=== PATIENT | female | born 1950 | race Caucasian/White ===

== ENCOUNTER 2016-06-13 10:47 | Observation (INO) | payer MEDICARE, MEDICAID ==
[2016-06-13] MEDS ORDERED: Aspirin Low Dose CHEW TAB* 81 MG PO ONE (11:14)
--- NOTE | 2016-06-13 11:37 | RAD ---
INDICATION: Chest pain COMPARISON: December 02, 2011 TECHNIQUE: An AP portable view obtained at 1120 hours is submitted. FINDINGS: Bones/Soft Tissues: There are no acute bony findings. Cardiomediastinal: The cardiomediastinal silhouette is normal. Lungs: There are no infiltrates. Pleura: There are no pleural effusions. Other: None IMPRESSION: NO ACTIVE DISEASE.
[2016-06-13 11:52] LABS: Hematocrit 40 % (35-47); Hemoglobin 13.3 g/dl (12.0-16.0); Mean Corpuscular HGB Conc 33 g/dl (31-36); Mean Corpuscular Hemoglobin 28 pg (27-31); Mean Corpuscular Volume 84 fL (80-97); Mean Platelet Volume 8 um3 (7.4-10.4); Red Blood Count 4.76 10^6/ul (4.0-5.4); Red Cell Distribution Width 13 % (10.5-15); White Blood Count 13.2 10^3/ul (3.5-10.8)
[2016-06-13 12:08] LABS: Albumin 3.5 g/dL (3.2-5.2); BUN/Creatinine Ratio 19.4 (8-20); EGFR Non-African American 88.6 (>60); Globulin 3.9 g/dL (2-4); Potassium 3.8 mmol/L (3.5-5.0); Total Bilirubin 0.3 mg/dL (0.2-1.0); Total Protein 7.4 g/dL (6.4-8.9)
[2016-06-13] MEDS ORDERED: Nitroglycerin TAB 0.4 MG* 0.4 MG TAB SL ONE (12:47)
[2016-06-13] MEDS ORDERED: hydrOXYzine HCL TAB* 25 MG PO PRN (14:57)
[2016-06-13] MEDS ORDERED: Dextrose 50% Syringe 50 ML* 25 GM/50 ML SYRINGE IV PUSH PRN (15:04)
[2016-06-13 15:46] LABS: HDL Cholesterol 44.4 mg/dL
[2016-06-13] MEDS ORDERED: Omeprazole CAP* 20 MG PO SCH (16:30)
[2016-06-13] MEDS ORDERED: Insulin LISPRO* 1 UNITS UNIT SUBCUT SCH (16:30)
[2016-06-13 17:18] VITALS: BP 115/67
--- NOTE | 2016-06-13 17:31 | HP ---
HOSPITAL MEDICINE HISTORY AND PHYSICAL: DATE OF ADMISSION: 06/13/16 PRIMARY CARE PHYSICIAN: Dr. Lopes. ATTENDING PHYSICIAN: Dr. Zachary Woo *(dictation provided by Jessy Quintero NP) CHIEF COMPLAINT: Chest pain. HISTORY OF PRESENT ILLNESS: Ms. Mistry is a 65-year-old female with a past medical history of diabetes, who presents today to the hospital with concern for chest pressure. Ms. Mistry states that she has had chest discomfort over the past 2 to 3 days. She reports that she will have chest pressure in the center of her chest associated with diaphoresis and lightheadedness after doing small housework in the home. She reports this started about 3 days ago and has continued since then. She states that the discomfort resolves with rest. She has had in the center of her chest and also today now radiating into the left shoulder. She was counseled by her friend to come to the hospital for evaluation. In the emergency room, Ms. Mistry had a troponin, which was 0.00 and an EKG which shows sinus rhythm with no evidence of ischemia. Her chest x-ray showed no acute process. She did continue to complain of pain in the ED, which resolved with 2 nitroglycerin. PAST MEDICAL HISTORY: 1. Diabetes. 2. GERD. 3. Depression. 4. History of total abdominal hysterectomy with oophorectomy. 5. Right shoulder surgery. 6. History of right foot osteomyelitis with amputation of the distal third toe. 7. Diverticulosis. MEDICATIONS: 1. Omeprazole 20 mg p.o. b.i.d. 2. Sitagliptin 100 mg p.o. daily. 3. Venlafaxine ER 300 mg p.o. q.a.m. 4. Hydroxyzine 25 mg p.o. four times a day p.r.n. ALLERGIES: To CIPROFLOXACIN, GLIPIZIDE, LACTOSE, LATEX, ASPIRIN, and LAUNDRY SOAPS. FAMILY HISTORY: The patient reports her mom in her 80s. Her dad is still alive. She has not know of any particular healthy histories with him. She has 1 child who is a male who is alive. She has 6 sisters and 4 brothers, all still alive and she is not aware of any acute or chronic health issues with them. SOCIAL HISTORY: No report of alcohol, tobacco, or drug use. The patient states that Jessy Olivier will be her healthcare proxy. REVIEW OF SYSTEMS: A 14-point review of systems was completed with Ms. Mistry and all those not mentioned above were negative. PHYSICAL EXAMINATION GENERAL: Ms. Mistry is sitting up in the bed. She is in no acute distress. She is calm and cooperative to my examination. VITAL SIGNS: Temperature 97, heart rate 80, respiratory rate 17, O2 saturation 95% on room air, blood pressure 120/74. LUNGS: Clear to auscultation bilaterally with no accessory muscle use and good aeration. HEART: S1 and S2. No murmur, rub, or gallop, and regular. ABDOMEN: Soft and nontender with bowel sounds positive x4. EXTREMITIES: No cyanosis or edema. NEURO: She is alert and oriented x3. She moves all extremities equally. There is no facial asymmetry or focal weakness. Extraocular movements are intact. SKIN: Intact. DIAGNOSTIC STUDIES/LAB DATA: Sodium 133, potassium 3.8, chloride 99, serum bicarbonate 23, BUN 13, creatinine 0.67, glucose 273, lactic acid 2.4. Troponin 0.00. WBC 13.2, hemoglobin 13.3, hematocrit 40, platelet count 201. Chest x-ray shows no acute process. EKG shows sinus rhythm with heart rate in the 80s. No evidence of ischemia. ASSESSMENT AND PLAN: Ms. Mistry is a 65-year-old female with a past medical history of morbid obesity and diabetes, who presents today to the hospital with concern for chest pressure. Our recommendations are as follows for observation in the hospital: 1. Chest pain: The patient will have troponins x2. Her first is negative. She will have an EKG with any further chest discomfort and if the workup is negative, she will go on to follow up outpatient with stress testing. I see no other etiology at this point for her intermittent discomfort. There is no evidence of infection. No evidence of pulmonary disease. Her vital signs are stable. 2. Diabetes. Plan to hold sitagliptin. She will have blood glucoses q.a.c. with lispro sliding scale insulin. 3. Gastroesophageal reflux disease. Continue omeprazole. 4. DVT prophylaxis with heparin subcu. 5. Disposition to telemetry floor. 6. Code status is full code. TIME SPENT: Approximately 60 minutes was spent on the admission of this patient , more than half the time was spent with her at the bedside reviewing the events leading up to this hospitalization, performing the physical examination, and reviewing my plan of care. JESSY QUINTERO NP CC: Dr. Lopes* [id number]/[facility] #: [id number] RICK
--- NOTE | 2016-06-13 18:54 | ED ---
José Paulson Adam, scribed for Rashi Cazares MD on 06/13/16 at 1212 . HPI Chest Pain - HPI Summary HPI Summary: Pt is a 65 year old female presenting with CP. She states that her chest has been feeling heavy and she has had a sharp pain in her left shoulder blade. The shoulder blade pain is gone now but she still c/o 4/10 chest heaviness. The pain has been intermittent for the past 4 days. It tends to last approximately 10 minutes. She also reports jaw numbness yesterday. She also c/o recent fatigue and diaphoresis. PMHx of DM. She had a stress test approximately 10 years ago. Negative tobacco/alcohol hx. - History of Current Complaint Chief Complaint: EDChestWallPain Time Seen by Provider: 06/13/16 11:14 Hx Obtained From: Patient Onset/Duration: Started Days Ago, Atraumatic, Still Present Timing: Intermittent Initial Severity: Moderate Current Severity: Mild Pain Intensity: 4 Pain Scale Used: 0-10 Numeric Chest Pain Location: Diffuse Chest Pain Radiates: Yes Chest Pain Radiates To:: Other - Left shoulder blade Character: Heaviness, Sharp/Stabbing Aggravating Factor(s): Nothing Alleviating Factor(s): Nothing Associated Signs and Symptoms: Positive: Numbness - Jaw, Diaphoresis, Other: - Fatigue - Allergy/Home Medications Allergies/Adverse Reactions: Allergies Allergy/AdvReac Type Severity Reaction Status Date / Time Ciprofloxacin [From Cipro] Allergy Unknown Verified 11/02/15 07:28 Reaction Details Glipizide Allergy Unknown Verified 11/02/15 07:29 Reaction Details Lactose Intolerance (GI) Allergy Diarrhea Verified 05/25/13 11:02 Latex Allergy ITCHY RASH Verified 05/25/13 11:02 Aspirin AdvReac Mild Nausea And Verified 05/25/13 11:02 Vomiting LAUNDRY SOAPS Allergy ITCHY Uncoded 05/25/13 11:02 RASH, HIVES Home Medications: Home Medications SitaGLIPtin (NF) [Januvia (NF)] 100 mg PO DAILY 06/13/16 [History Confirmed ] Venlafaxine ER (NF) [Effexor ER (NF)] 300 mg PO QAM 06/13/16 [History Confirmed 06/13/16] hydrOXYzine HCL TAB* [Atarax 25 MG TAB*] 25 mg PO QID PRN 06/13/16 [History Confirmed 06/13/16] PMH/Surg Hx/FS Hx/Imm Hx Endocrine/Hematology History: Reports: Hx Diabetes Cardiovascular History: Denies: Hx Congestive Heart Failure, Hx Hypertension GI History: Reports: Hx Gastroesophageal Reflux Disease - CONTROL WITH MEDS, Other GI Disorders - CHOLECYSTITIS Musculoskeletal History: Reports: Hx Arthritis - BILATERAL FEET, Hx Tendonitis - RIGHT SHOULDER Sensory History: Reports: Hx Contacts or Glasses - GLASSES Denies: Hx Hearing Aid Opthamlomology History: Reports: Hx Contacts or Glasses - GLASSES Psychiatric History: Reports: Hx Anxiety, Hx Depression - Cancer History Hx Chemotherapy: No Hx Radiation Therapy: No - Surgical History Surgery Procedure, Year, and Place: 1981 HYSTERECTOMY, [facility]. 1996 RIGHT SHOULDER SURGERY, [facility] Hx Anesthesia Reactions: No - Immunization History Date of Tetanus Vaccine: [place] Date of Influenza Vaccine: last year Infectious Disease History: No Infectious Disease History: Denies: Traveled Outside the [place] in Last 30 Days - Family History Known Family History: Positive: Other - Breast cancer (sister) - Social History Occupation: Disabled Lives: With Family - Female relative Alcohol Use: None Hx Substance Use: No Substance Use Type: Reports: None Hx Tobacco Use: Yes Smoking Status (MU): Former Smoker Amount Used/How Often: 3 PPD Length of Time of Smoking/Using Tobacco: 25 YEARS Have You Smoked in the Last Year: No Review of Systems Positive: Fatigue, Skin Diaphoresis. Negative: Fever, Chills Negative: Erythema Negative: Sore Throat Positive: Chest Pain Negative: Shortness Of Breath, Cough Negative: Abdominal Pain, Vomiting, Nausea Negative: dysuria, hematuria Positive: Myalgia - Left shoulder blade. Negative: Edema Negative: Rash Positive: Numbness - Jaw All Other Systems Reviewed And Are Negative: Yes Physical Exam - Summary Physical Exam Summary: Constitutional: Well-developed, Well-nourished, Alert. (-) Distressed Skin: Warm, Dry HENT: Normocephalic; Atraumatic Eyes: Conjunctiva normal Neck: Musculoskeletal ROM normal neck. (-) JVD, (-) Stridor, (-) Tracheal deviation Cardio: Rhythm regular, rate normal, Heart sounds normal; Intact distal pulses; The pedal pulses are 2+ and symmetric. Radial pulses are 2+ and symmetric. (-) Murmur Pulmonary/Chest wall: Effort normal. (-) Respiratory distress, (-) Wheezes, (-) Rales Abd: Soft, (-) Tenderness, (-) Distension, (-) Guarding, (-) Rebound Musculoskeletal: (-) Edema Lymph: (-) Cervical adenopathy Neuro: Alert, Oriented x3 Psych: Mood and affect Normal Triage Information Reviewed: Yes Vital Signs On Initial Exam: Initial Vitals Temp Pulse Resp BP Pulse Ox 97.0 F 88 20 137/71 98 06/13/16 10:48 06/13/16 10:48 06/13/16 10:48 06/13/16 10:48 06/13/16 10:48 Vital Signs Reviewed: Yes - Tonya Coma Scale Coma Scale Total: 15 Diagnostics - Vital Signs Vital Signs Temp Pulse Resp BP Pulse Ox 06/13/16 11:30 79 135/74 96 06/13/16 11:21 81 12 94 06/13/16 11:20 136/91 06/13/16 11:08 97 F 81 18 148/76 95 06/13/16 10:48 97.0 F 88 20 137/71 98 - Laboratory Lab Results: Lab Results 06/13/16 06/13/16 06/13/16 Range/Units 11:40 11:40 11:40 WBC 13.2 H (3.5-10.8) 10^3/ul RBC 4.76 (4.0-5.4) 10^6/ul Hgb 13.3 (12.0-16.0) g/dl Hct 40 (35-47) % MCV 84 (80-97) fL MCH 28 (27-31) pg MCHC 33 (31-36) g/dl RDW 13 (10.5-15) % Plt Count 201 (150-450) 10^3/ul MPV 8 (7.4-10.4) um3 Neut % (Auto) 66.5 (38-83) % Lymph % (Auto) 25.9 (25-47) % Will % (Auto) 4.8 (1-9) % Eos % (Auto) 1.8 (0-6) % Baso % (Auto) 1.0 (0-2) % Absolute Neuts (auto) 8.8 H (1.5-7.7) 10^3/ul Absolute Lymphs (auto) 3.4 (1.0-4.8) 10^3/ul Absolute Monos (auto) 0.6 (0-0.8) 10^3/ul Absolute Eos (auto) 0.2 (0-0.6) 10^3/ul Absolute Basos (auto) 0.1 (0-0.2) 10^3/ul Absolute Nucleated RBC 0.01 10^3/ul Nucleated RBC % 0.1 Sodium 133 (133-145) mmol/L Potassium 3.8 (3.5-5.0) mmol/L Chloride 99 L (101-111) mmol/L Carbon Dioxide 23 (22-32) mmol/L Anion Gap 11 (2-11) mmol/L BUN 13 (6-24) mg/dL Creatinine 0.67 (0.51-0.95) mg/dL Est GFR ( Amer) 114.0 (>60) Est GFR (Non-Af Amer) 88.6 (>60) BUN/Creatinine Ratio 19.4 (8-20) Glucose 273 H (70-100) mg/dL Lactic Acid 2.4 H* (0.5-2.0) mmol/L Calcium 9.0 (8.6-10.3) mg/dL Total Bilirubin 0.30 (0.2-1.0) mg/dL AST 21 (13-39) U/L ALT 21 (7-52) U/L Alkaline Phosphatase 106 H (34-104) U/L Troponin I 0.00 (<0.04) ng/mL Total Protein 7.4 (6.4-8.9) g/dL Albumin 3.5 (3.2-5.2) g/dL Globulin 3.9 (2-4) g/dL Albumin/Globulin Ratio 0.9 L (1-3) Result Diagrams: 06/13/16 11:40 06/13/16 11:40 Lab Statement: Any lab studies that have been ordered have been reviewed, and results considered in the medical decision making process. - Radiology CXR Radiology Interpretation Completed By: Radiologist - IMPRESSION: NO ACTIVE DISEASE. - EKG 11:01 Cardiac Rate: NL - 83 BPM EKG Rhythm: Sinus Rhythm ST Segment: Normal EKG Interpretation: No STEMI - Additional Comments Diagnostic Additional Comments: Lactic Acid - 2.4 Troponin I - 0.00 Chest Pain Course/Dx - Diagnoses Provider Diagnoses: Chest pain, unspecified Discharge - Discharge Plan Condition: Stable Disposition: ADMITTED TO [facility] The documentation as recorded by the José larose Adam accurately reflects the service I personally performed and the decisions made by , Rashi Cazares MD.
--- NOTE | 2016-06-13 19:25 | PN ---
Progress Note - Progress Note Note: Ms. Mistry has had three negative troponins at 0.00. EKG shows no evidence of ischemia. Patient has remained chest pain free. Patient to be discharged to home now with plan for follow up outpatient stress testing early next week with the [facility]. Please refer to the H&P and D/C Summary for complete details.
[2016-06-13] MEDS ORDERED: Heparin VIAL(*) 5000 UNITS/ML VIAL (FIVE THOUSAND) SUBCUT SCH (22:00)
--- NOTE | 2016-06-14 04:23 | DS ---
HOSPITAL MEDICINE DISCHARGE SUMMARY: DATE OF ADMISSION: 06/13/16 DATE OF DISCHARGE: 06/13/16 PRIMARY CARE PHYSICIAN: Dr. Lopes ATTENDING PHYSICIAN: Dr. Zachary Peguero *(dictation provided by Jessy Quintero NP). PRIMARY DIAGNOSIS: Chest pain. SECONDARY DIAGNOSES: 1. Type 2 diabetes, [id number]. 2. Gastroesophageal reflux disease. 3. Depression. 4. History of total abdominal hysterectomy with oophorectomy. 5. Right shoulder surgery. 6. History of right foot osteomyelitis. 7. Diverticulosis. MEDICATIONS AT THE TIME OF DISCHARGE: There are no medication changes. 1. Omeprazole 20 mg p.o. b.i.d. 2. Sitagliptin 100 mg p.o. daily. 3. Venlafaxine ER 300 mg p.o. q.a.m. 4. Hydroxyzine 25 mg p.o. 4 times a day p.r.n. HOSPITAL COURSE: Ms. Mistry is a 65-year-old female with a past medical history as outlined above, who presented to the emergency room on 06/13/16 with concern for chest pressure. Please see the dictated H and P from myself for complete details. In brief, the patient reported that she had had chest pressure associated with diaphoresis while doing housework at home over the past 3 days. She said the discomfort did resolve with rest. She had no other complaints. She had a troponin in the emergency room, which was 0.00 and EKG, which showed no evidence of ischemia. Because of her risk factors, Ms. Mistry was admitted to the hospital for observation to rule out acute coronary syndrome. She had 2 repeat troponins, all of which were 0.00. She had no further discomfort while here in the hospital with us. She states she is feeling very well and is eager for discharge to home. Ms. Mistry is medically stable for discharge to home to follow up with the [facility] for outpatient stress testing based on her negative troponins and negative EKG. I have put an order in for her to have that test done early next week and instructed her to call if she does not hear from the [facility] by Thursday. In addition, the patient was strongly encouraged to return to the emergency room should she have chest discomfort or any other concerning symptoms for reevaluation in the meantime. Ms. Mistry stated understanding of such and agreed to return if needed. DISPOSITION: To home. DIET: Consistent carbohydrate. ACTIVITY: As tolerated. FOLLOWUP PLANS: 1. Please follow up with [facility] on Thursday or Thursday for scheduling of outpatient stress test. 2. Please follow up with Dr. Lopes regarding this hospitalization. Please call on Thursday for an appointment. TIME SPENT: Approximately 60 minutes were spent on the discharge of this patient, more than half time spent with her at the bedside reviewing the events leading up to this hospitalization, performing the physical examination, and reviewing the plan of care. JESSY QUINTERO NP CC: Dr. Lopes* [id number]/[facility] #: [id number] RICK
[2016-06-14] MEDS ORDERED: Aspirin TAB* 325 MG PO SCH (09:00)
== END 2016-06-13 20:15 | disposition home or self-care (01) ==
LOC: ED 10:47 → MEDTELE 13:32
PROVIDERS: ADMIT Internal Medicine; ATTEND Hospitalist
DX: R07.9 Chest pain, unspecified (principal); E11.9 Type 2 diabetes mellitus without complications; K21.9 Gastro-esophageal reflux disease without esophagitis; F32.9 Major depressive disorder, single episode, unspecified; Z90.710 Acquired absence of both cervix and uterus; Z88.6 Allergy status to analgesic agent; Z88.1 Allergy status to other antibiotic agents; Z91.040 Latex allergy status
CPT/HCPCS: 36415; 71010; 80053; 80061; 83036; 83605; 84484; 85025; 93005; 99284; A9270-GY; G0378

== ENCOUNTER 2017-04-16 13:32 | Emergency (ER) | payer MEDICARE, MEDICAID ==
[2017-04-16 13:37] VITALS: BP 139/71
--- NOTE | 2017-04-16 14:29 | RAD ---
Indication: Right hip pain. 2 views of the right hip and an AP view of the pelvis demonstrates no fracture. Joint spaces well-preserved. Sacroiliac joints are unremarkable. IMPRESSION: No fracture of the right hip or pelvis is noted.
--- NOTE | 2017-04-16 16:25 | ED ---
Lower Extremity - HPI Summary HPI Summary: Patient presents to the ED with right lateral hip pain in her thigh pain and right buttocks pain. History of sciatica and states this feels similar, but did not resolve with exercises. She has been symptomatic for 2 days. Symptoms are aggravated by laying flat, alleviated with standing. She has taken Advil for relief, but helps only moderately. Denies any lumbar spine problems in the past. Denies any other pain at this time. She denies any injury however she states the symptoms began after she was vacuuming and feels like she twisted wrong. Denies weakness, numbness, tingling, bladder or bowel dysfunction. - History of Current Complaint Chief Complaint: EDExtremityLower Stated Complaint: RT HIP Time Seen by Provider: 04/16/17 13:48 Hx Obtained From: Patient Mechanism Of Injury: Twisted Onset/Duration: Hours Severity Initially: Mild Severity Currently: Mild Pain Intensity: 0 Pain Scale Used: 0-10 Numeric Timing: Constant Location: Is Discrete @ - Right sided buttocks inner thigh lateral hip and posterior lower back Associated Signs And Symptoms: Positive: Negative Alleviating Factor(s): Rest - Allergies/Home Medications Allergies/Adverse Reactions: Allergies Allergy/AdvReac Type Severity Reaction Status Date / Time aspirin Allergy Nausea And Verified 04/16/17 14:03 Vomiting ciprofloxacin Allergy Unknown Verified 04/16/17 14:09 Reaction Details glipizide Allergy Unknown Verified 04/16/17 14:09 Reaction Details lactose Allergy Diarrhea Verified 04/16/17 14:10 latex Allergy Rash Verified 04/16/17 14:10 rosuvastatin [From Crestor] Allergy Runny Nose Verified 04/16/17 14:10 LAUNDRY SOAPS Allergy ITCHY Uncoded 05/25/13 11:02 RASH, HIVES PMH/Surg Hx/FS Hx/Imm Hx Previously Healthy: Yes Endocrine/Hematology History: Reports: Hx Diabetes Cardiovascular History: Denies: Hx Angina, Hx Congestive Heart Failure, Hx Coronary Artery Disease, Hx Hypercholesterolemia, Hx Hypertension, Hx Myocardial Infarction, Hx Valvular Heart Disease Respiratory History: Denies: Hx Asthma GI History: Reports: Hx Gastroesophageal Reflux Disease - CONTROL WITH MEDS, Other GI Disorders - CHOLECYSTITIS Musculoskeletal History: Reports: Hx Arthritis - BILATERAL FEET, Hx Tendonitis - RIGHT SHOULDER Sensory History: Reports: Hx Contacts or Glasses - GLASSES Denies: Hx Hearing Aid Opthamlomology History: Reports: Hx Contacts or Glasses - GLASSES Psychiatric History: Reports: Hx Anxiety, Hx Depression - Cancer History Hx Chemotherapy: No Hx Radiation Therapy: No - Surgical History Surgery Procedure, Year, and Place: 1981 HYSTERECTOMY, [place]. 1996 RIGHT SHOULDER SURGERY, [facility] Hx Anesthesia Reactions: No - Immunization History Date of Tetanus Vaccine: [facility] Date of Influenza Vaccine: last year Hx Pertussis Vaccination: No Immunizations Up to Date: Unable to Obtain/Confirm Infectious Disease History: No Infectious Disease History: Denies: Traveled Outside the [place] in Last 30 Days - Family History Known Family History: Positive: Other - Breast cancer (sister) - Social History Occupation: Unemployed Lives: With Family Alcohol Use: None Hx Substance Use: No Substance Use Type: Reports: None Hx Tobacco Use: Yes Smoking Status (MU): Former Smoker Amount Used/How Often: 3 PPD Length of Time of Smoking/Using Tobacco: 25 YEARS Have You Smoked in the Last Year: No Review of Systems Constitutional: Negative Negative: Fever, Chills, Fatigue Eyes: Negative Cardiovascular: Negative Negative: Abdominal Pain, Vomiting, Diarrhea, Nausea Genitourinary: Negative Positive: no symptoms reported, see HPI Positive: Arthralgia, Myalgia Skin: Negative Negative: Weakness, Paresthesia, Numbness, Syncope Psychological: Normal All Other Systems Reviewed And Are Negative: Yes Physical Exam Triage Information Reviewed: Yes Vital Signs On Initial Exam: Initial Vitals Temp Pulse Resp BP Pulse Ox 96.5 F 87 16 139/71 99 04/16/17 13:36 04/16/17 13:36 04/16/17 13:36 04/16/17 13:36 04/16/17 13:36 Vital Signs Reviewed: Yes Appearance: Positive: Well-Appearing, Well-Nourished Skin: Positive: Warm, Skin Color Reflects Adequate Perfusion Head/Face: Positive: Normal Head/Face Inspection Eyes: Positive: Normal, ARLIN, Conjunctiva Clear Neck: Positive: Supple, Nontender Respiratory/Lung Sounds: Positive: Clear to Auscultation, Breath Sounds Present Cardiovascular: Positive: RRR, Pulses are Symmetrical in both Upper and Lower Extremities Musculoskeletal: Positive: Normal, Strength/ROM Intact Neurological: Positive: Speech Normal Psychiatric: Positive: Normal, Affect/Mood Appropriate AVPU Assessment: Alert Diagnostics - Vital Signs Vital Signs Temp Pulse Resp BP Pulse Ox 04/16/17 15:33 96.5 F 87 16 139/71 99 04/16/17 13:36 96.5 F 87 16 139/71 99 - Laboratory Lab Statement: Any lab studies that have been ordered have been reviewed, and results considered in the medical decision making process. Lower Extremity Course/Dx - Course Course Of Treatment: During the course of treatment, the patient is evaluated for puriform forma syndrome versus sciatica versus lumbar radiculopathy. Patient has a history of sciatica and is given exercises from her PCP with a fact. However, today upon attempting to try the exercises, they did not relieve her pressure and pain in the area of concern. During the physical exam , she is able to stand without pain. There is no deformity noted to the hip. No ecchymosis, warmth or other tenderness. Tenderness is discretely located into the middle of the buttocks which radiates down the posterior leg resembling a sciatica versus piriformis syndrome. She is given exercises, Flexeril, and tramadol. However she is given strict instructions not to take these at the same time and instead to try to discern which works better for her between the tramadol and Flexeril. She is okay with this plan and discharged. She will follow up with her PCP regarding furthering prescription medications or PT referrals. - Diagnoses Provider Diagnoses: Piriformis syndrome Discharge - Discharge Plan Condition: Stable Disposition: HOME Prescriptions: Cyclobenzaprine TAB* [Flexeril TAB*] 10 mg PO BID PRN #10 tab PRN Reason: Pain traMADol TAB* [Ultram*] 50 mg PO Q8H PRN #12 tab MDD 3 PRN Reason: Pain Patient Education Materials: Sciatica (ED), Piriformis Syndrome (ED), Lower Back Exercises (ED) Referrals: Jelly Lopes MD [Primary Care Provider] - Additional Instructions: Please follow-up with your PCP Tramadol up to 3 times daily for pain Flexeril up to twice daily for muscle spasms Do not take these at the same time Moist heat to the area as much as possible Low back exercises have been given to you
== END 2017-04-16 15:35 | disposition home or self-care (01) ==
LOC: ED 13:32
DX: G57.01 Lesion of sciatic nerve, right lower limb (principal); Z87.891 Personal history of nicotine dependence
CPT/HCPCS: 99281

== ENCOUNTER 2022-09-26 15:51 | Observation (INO) ==
[2022-09-26 17:25] LABS: ABS Basophils 0.1 10^3/uL (0.0-0.1); ABS Eosinophils 0.3 10^3/uL (0.0-0.5); ABS Lymphocytes 2.6 10^3/uL (1.0-4.8); ABS Monocytes 0.9 10^3/uL (0.0-0.9); ABS Neutrophils 6.1 10^3/uL (1.5-7.6); ABS Nucleated RBC 0.01 10^3/ul; Eosinophil % 2.7 %; Hematocrit 45.8 % (35-45); Hemoglobin 15.3 g/dL (11.5-14.3); Mean Corpuscular Hemoglobin 30.4 pg (27-33); Mean Corpuscular Hgb Conc 33.4 g/dL (31-36); Mean Corpuscular Volume 90.9 fL (80-97); Mean Platelet Volume 7.8 fL (7.5-11.2); Nucleated Red Blood Cells % 0.1 /100 WBC (0.0-0.4); Platelet Count 261 10^3/uL (150-450); Red Blood Count 5.04 10^6/uL (3.63-4.92); Red Cell Distribution Width 13.7 % (12-17)
[2022-09-26 17:31] LABS: INR 1.14 (0.88-1.18)
[2022-09-26 17:41] LABS: Albumin 4.1 g/dL (3.2-5.2); Albumin/Globulin Ratio 1.1 (1-3); Creatinine, Serum 0.74 mg/dL (0.51-0.95); Globulin 3.7 g/dL (2-4); Total Bilirubin 0.3 mg/dL (0.2-1.0); Total Protein 7.8 g/dL (6.4-8.9)
[2022-09-26 18:54] LABS: High Sensitivity Troponin 1 Hr 15 pg/mL (<15)
[2022-09-26 19:34] LABS: Urine Appearance Clear; Urine Bilirubin Negative (Negative); Urine Blood Negative (Negative); Urine Color Yellow; Urine Glucose 3+(>=500 mg/dL) (Negative); Urine Ketones Negative (Negative); Urine Nitrite Negative (Negative); Urine Protein Negative (Negative); Urine Specific Gravity 1.031 (1.002-1.030); Urine Urobilinogen Negative (Negative)
[2022-09-26 19:59] LABS: Urine Bacteria Absent (Absent); Urine Red Blood Cell Trace(0-2/hpf) (Absent); Urine Squamous Epithelial Cell Present (Absent); Urine White Blood Cell 1+(6-10/hpf) (Absent)
[2022-09-26] MEDS ORDERED: Iodixanol (CONTRAST) 320 MG/ML 100 ML SDV IV ONE (21:55)
[2022-09-27 00:12] LABS: HDL Cholesterol 55.4 mg/dL
[2022-09-27] MEDS ORDERED: Empagliflozin 25 MG TAB PO SCH (09:00)
[2022-09-27] MEDS ORDERED: Venlafaxine XR 75 mg PO SCH (09:00)
[2022-09-27 10:32] LABS: ABS Basophils 0.1 10^3/uL (0.0-0.1); ABS Eosinophils 0.3 10^3/uL (0.0-0.5); ABS Lymphocytes 2.2 10^3/uL (1.0-4.8); ABS Monocytes 0.8 10^3/uL (0.0-0.9); ABS Neutrophils 5.8 10^3/uL (1.5-7.6); ABS Nucleated RBC 0.01 10^3/ul; Hematocrit 43.8 % (35-45); Hemoglobin 14.7 g/dL (11.5-14.3); Lymphocyte % 24.4 %; Mean Corpuscular Hemoglobin 30.6 pg (27-33); Mean Corpuscular Hgb Conc 33.7 g/dL (31-36); Mean Corpuscular Volume 90.9 fL (80-97); Mean Platelet Volume 7.6 fL (7.5-11.2); Nucleated Red Blood Cells % 0.1 /100 WBC (0.0-0.4); Platelet Count 224 10^3/uL (150-450); Red Blood Count 4.82 10^6/uL (3.63-4.92); Red Cell Distribution Width 13.4 % (12-17); White Blood Count 9.2 10^3/uL (3.8-11.8)
[2022-09-27 11:00] LABS: Creatinine, Serum 0.68 mg/dL (0.51-0.95); eGFR CKD-EPI 93.6 (>60)
[2022-09-27 14:01] VITALS: BP 132/62
== END 2022-09-27 14:47 | disposition home or self-care (01) ==
LOC: EDHOLD 15:51 → ED 15:51 → SUATTDRO 23:09 → EDHOLD 09-27 13:28 → MEDTELE 09-27 14:50
PROVIDERS: ADMIT Internal Medicine; ATTEND Student in an Organized Health Care Education/Training Program

== ENCOUNTER 2023-07-31 12:40 | Observation (INO) ==
[2023-07-31 13:21] LABS: ABS Basophils 0.1 10^3/uL (0.0-0.1); ABS Eosinophils 0.2 10^3/uL (0.0-0.5); ABS Monocytes 0.7 10^3/uL (0.0-0.9); ABS Neutrophils 7.6 10^3/uL (1.5-7.6); ABS Nucleated RBC 0.01 10^3/ul; Eosinophil % 1.7 %; Hematocrit 44.9 % (35-45); Lymphocyte % 19.2 %; Mean Corpuscular Hemoglobin 30.1 pg (27-33); Mean Corpuscular Hgb Conc 33.3 g/dL (31-36); Mean Corpuscular Volume 90.2 fL (80-97); Mean Platelet Volume 7.9 fL (7.5-11.2); Nucleated Red Blood Cells % 0.1 %/100WBC (0.0-0.8); Platelet Count 241 10^3/uL (150-450); Red Blood Count 4.98 10^6/uL (3.63-4.92); Red Cell Distribution Width 13.3 % (12-17); White Blood Count 10.6 10^3/uL (3.8-11.8)
[2023-07-31 13:30] LABS: INR 1.1 (0.83-1.13)
[2023-07-31 13:47] LABS: High Sens Troponin Baseline 7 pg/mL (<15)
[2023-07-31 14:09] LABS: ALT 14 U/L (7-52); Albumin 3.8 g/dL (3.2-5.2); Albumin/Globulin Ratio 1.2 (1-3); Alkaline Phosphatase 73 U/L (35-149); Blood Urea Nitrogen 8 mg/dL (6-24); CO2 Carbon Dioxide 23 mmol/L (22-32); Calcium 8.9 mg/dL (8.6-10.3); Chloride 102 mmol/L (101-111); Creatinine, Serum 0.65 mg/dL (0.51-0.95); Globulin 3.1 g/dL (2-4); Glucose 263 mg/dL (70-100); Sodium 139 mmol/L (135-145); Total Bilirubin 0.6 mg/dL (0.2-1.0); Total Protein 6.9 g/dL (6.4-8.9); eGFR CKD-EPI 94.1 (>60)
[2023-07-31 14:26] LABS: Anion Gap 14 mmol/L (2-16)
[2023-07-31 14:39] LABS: High Sensitivity Troponin 1 Hr 7 pg/mL (<15)
[2023-07-31] MEDS ORDERED: Dextrose 50% Syringe 50 ml 25 GM/50 ML SYRINGE IV PUSH PRN (18:07)
[2023-07-31] MEDS: Enoxaparin 40 MG/0.4 ML SYR SUBCUT SCH (19:42)
[2023-08-01 05:20] LABS: ABS Eosinophils 0.3 10^3/uL (0.0-0.5); ABS Lymphocytes 2.6 10^3/uL (1.0-4.8); ABS Monocytes 0.8 10^3/uL (0.0-0.9); ABS Neutrophils 6.5 10^3/uL (1.5-7.6); ABS Nucleated RBC 0.01 10^3/ul; Eosinophil % 2.6 %; Hematocrit 41.2 % (35-45); Lymphocyte % 25.4 %; Mean Corpuscular Hemoglobin 30.5 pg (27-33); Mean Corpuscular Volume 89.7 fL (80-97); Nucleated Red Blood Cells % 0.1 %/100WBC (0.0-0.8); Platelet Count 193 10^3/uL (150-450); Red Blood Count 4.59 10^6/uL (3.63-4.92); Red Cell Distribution Width 13.8 % (12-17); White Blood Count 10.2 10^3/uL (3.8-11.8)
[2023-08-01 06:03] LABS: Potassium Redraw 3.2 mmol/L (3.5-5.0)
[2023-08-01 06:04] LABS: Calcium 8.4 mg/dL (8.6-10.3); Creatinine, Serum 0.68 mg/dL (0.51-0.95); Potassium 3.3 mmol/L (3.5-5.0); eGFR CKD-EPI 93.1 (>60)
[2023-08-01] MEDS: Potassium Chloride LIQUID 20 MEQ/15 ML LIQUID PO ONE (08:38)
[2023-08-01] MEDS: Venlafaxine XR 75 mg PO SCH (08:39)
[2023-08-01] MEDS: Empagliflozin 25 MG TAB PO SCH (09:19)
[2023-08-01 09:52] LABS: Magnesium 1.4 mg/dL (1.9-2.7)
[2023-08-01] MEDS: Magnesium Sulf 4 GM/100 ML IV 4,000 MG/100 ML BAG IVPB ONE (10:46)
[2023-08-02 06:42] LABS: Calcium 8.4 mg/dL (8.6-10.3); Creatinine, Serum 0.59 mg/dL (0.51-0.95); Magnesium 1.9 mg/dL (1.9-2.7); Potassium 3.8 mmol/L (3.5-5.0); eGFR CKD-EPI 96.3 (>60)
[2023-08-03] MEDS ORDERED: Aminophylline 25 MG/ML VIAL ONE (07:55)
[2023-08-03] MEDS ORDERED: Regadenoson 0.4 MG/5 ML SYRINGE ONE (07:55)
[2023-08-03 10:02] VITALS: BP 103/45
== END 2023-08-03 14:25 | disposition home or self-care (01) ==
LOC: EDHOLD 12:40 → ED 12:40 → EDHOLD 08-01 07:41 → MEDTELE 08-01 08:17
PROVIDERS: ADMIT Hospitalist; ATTEND Hospitalist